=== PATIENT | female | born 1985 | race Caucasian/White ===

== ENCOUNTER 2018-01-18 19:30 | Outpatient (CLI) | payer BC, OTHER | END 2018-01-18 19:31 | disposition home or self-care (01) | LOC: SLEEPLAB 19:30 | PROVIDERS: ATTEND Internal Medicine | DX: G47.33 Obstructive sleep apnea (adult) (pediatric) (principal); G47.10 Hypersomnia, unspecified; G47.00 Insomnia, unspecified; R06.83 Snoring; R51 Headache; Z68.24 Body mass index [BMI] 24.0-24.9, adult | CPT/HCPCS: 95810 ==